=== PATIENT | male | born 1975 | race Two or more races ===

== ENCOUNTER 2024-11-01 21:01 | Inpatient (IN) | payer OTHER ==
[~2024-11-01] VITALS: Ht 182.9 cm; Wt 82.4 kg
--- NOTE | 2024-11-01 21:13 | ECG ---
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
--- NOTE | 2024-11-01 21:24 | ED.PDOC ---
HPI Comments 49-year-old male came to emergency room due to palpitations. Patient has history of anxiety, and recently diagnosed with PVCs. States he has been having intermittent episodes of palpitations since yesterday, associated weakness and chest discomfort. Denies any dizziness or shortness a breath. States worsening and persistence of palpitations the past few hours prompted him to go to the ER. Chief Complaint: Palpitations Time Seen by MD: 21:23 Reviewed Notes: Nurses Notes Allergies: Coded Allergies: No Known Drug Allergy (Verified Allergy, Unknown, 11/01/24) Information Source: Patient Mode of Arrival: Ambulatory Severity: Moderate Timing: Hours Duration: Since onset Associated Signs and Symptoms: Palpitations Review of Systems REVIEW OF SYSTEMS: No fever, no chills, or fatigue HEENT: No sore throat, no earache, no congestion, no neck pain. Cardiac: No chest pain. (+) palpitations. Lungs: No shortness of breath, no cough. GI: No nausea, no vomiting, no diarrhea, no constipation, no abdominal pain : No dysuria, frequency, or urgency. No hematuria. Musculoskeletal: No joint pain , no joint swelling, no extremity edema. Skin: No rash, no itching. Neuro: No headache, no dizziness, no weakness Vital Signs Vital Signs Date Time Temp Pulse Resp B/P (MAP) Pulse Ox O2 Delivery O2 Flow Rate FiO2 11/01/24 23:17 98.2 88 18 152/85 (107) 97 98.2 11/01/24 23:17 Room Air Physical Exam General: Awake, alert and oriented. No acute distress. Skin: Skin in warm, dry and intact. Appropriate color for ethnicity. Nailbeds pink with no cyanosis. HEENT: The head is normocephalic and atraumatic. Conjunctivae are clear without exudates or hemorrhage. Sclera is non-icteric. EOM are intact. No signs of nystagmus. Eyelids are normal in appearance without swelling or lesions. Oral mucosa is pink and moist Neck: The neck is supple with normal range of motion. No JVD. Cardiac: Heart rate and rhythm are normal. No murmurs, gallops, or rubs are auscultated. Respiratory: No signs of respiratory distress. Lung sounds are clear in all lobes bilaterally without rales, ronchi, or wheezes. Abdominal: Abdomen is soft, non-tender without distention. Bowel sounds are present and normoactive in all four quadrants. Extremities: Upper and lower extremities are atraumatic in appearance without deformity or edema. Neurological: The patient is awake, alert and oriented to person, place, and time with normal speech. Speech is clear. There is no facial asymmetry. Psychiatric: Appropriate mood and affect. Good judgement and insight. No visual or auditory hallucinations. Past Medical History PAST MEDICAL HISTORY: Anxiety Past Medical History (Other): PVCs Surgical History: Denies all surgeries Family History Family History: Reviewed,noncontributory to illness Social History Smoker: Non-Smoker Alcohol: Denies ETOH Use Drugs: Denies Drug Use Lives In: Home EKG EKG : Pulse Rate (adult): 92 Cardiac Rhythm: NSR Was a procedure done? Was a procedure done?: No CP Differential Dx Differential Diagnosis: A-fib, Angina, Anxiety / Panic Attack, Hyperventilation, PVC's, Sinus Tachycardia Differential Diagnosis: Angina, Chest Wall Pain, Costochondritis, Esophageal reflux/spasm, Gastritis, Myocardial Infarction X-Ray, Labs, Meds, VS Vital Signs Date Time Temp Pulse Resp B/P (MAP) Pulse Ox O2 Delivery O2 Flow Rate FiO2 11/01/24 23:17 98.2 88 18 152/85 (107) 97 98.2 11/01/24 23:17 88 18 97 Room Air 11/01/24 22:15 94 11/01/24 21:38 98.2 94 18 152/81 (104) 98 11/01/24 21:24 92 11/01/24 21:11 92 Lab Test 11/01/24 21:55 11/01/24 21:13 Range/Units Troponin I High Sensitivity 3 L 3 L </=54 ng/L White Blood Count 6.6 4.4-10.8 10^3/uL Red Blood Count 5.18 4.5-5.90 10^6/uL Hemoglobin 14.5 13.5-17.5 g/dL Hematocrit 41.8 41.0-53.0 % Mean Corpuscular Volume 80.6 80.0-100.0 fL Mean Corpuscular Hemoglobin 28.0 28.0-32.0 pg Mean Corpuscular Hemoglobin Concent 34.7 32.0-36.0 g/dL Red Cell Distribution Width 14.1 11.8-14.3 % Platelet Count 209 140-450 10^3/uL Mean Platelet Volume 7.9 6.9-10.8 fL Neutrophils (%) (Auto) 68.6 37.0-80.0 % Lymphocytes (%) (Auto) 20.9 10.0-50.0 % Monocytes (%) (Auto) 9.0 0.0-12.0 % Eosinophils (%) (Auto) 0.9 0.0-7.0 % Basophils (%) (Auto) 0.6 0.0-2.0 % Neutrophils # (Auto) 4.6 1.6-8.6 10 ^3/uL Lymphocytes # (Auto) 1.4 0.4-5.4 10 ^3/uL Monocytes # (Auto) 0.6 0-1.3 10 ^3/uL Eosinophils # (Auto) 0.1 0-0.8 10 ^3/uL Basophils # (Auto) 0 0-0.2 10 ^3/uL Nucleated Red Blood Cells 0.0 % Sodium Level 141 136-145 mmol/L Potassium Level 4.1 3.5-5.1 mmol/L Chloride Level 108 H 98-107 mmol/L Carbon Dioxide Level 29 20-31 mmol/L Anion Gap 4 L 5-15 Blood Urea Nitrogen 11 9-23 mg/dL Creatinine 1.19 0.700-1.30 mg/dL Glomerular Filtration Rate Calc 74 >90 mL/min BUN/Creatinine Ratio 9.2 L 10.0-20.0 Serum Glucose 109 H 74-106 mg/dL Calcium Level 10.1 8.7-10.4 mg/dL Magnesium Level 2.3 1.6-2.6 mg/dL Total Bilirubin 0.6 0.2-1.0 mg/dL Aspartate Amino Transferase (AST) 29 13-40 U/L Alanine Aminotransferase (ALT) 36 7-40 U/L Alkaline Phosphatase 96 46-116 U/L Total Protein 7.5 5.7-8.2 g/dL Albumin 4.5 3.2-4.8 g/dL Thyroid Stimulating Hormone (TSH) 1.12 0.55-4.78 uIU/mL CHEST RADIOGRAPH Indication: Chest pain, palpitations Technique: Single frontal view of the chest was obtained Comparison: None FINDINGS: Lines and Tubes: None Lungs: No focal consolidation. Pleura: No effusion. No pneumothorax. Cardiomediastinal contours: Unremarkable Bones: No acute osseous abnormality. IMPRESSION: No acute cardiopulmonary disease. Time of 1ST Reevaluation: 21:18 Reevaluation 1ST: Unchanged Patient Education/Counseling: Diagnosis, Treatment Family Education/Counseling: No Family Present Departure 1 Departure Time of Disposition: 22:40 Impression: Primary Impression: Chest pain Additional Impressions: Palpitations Symptomatic PVCs Disposition: ADMITTED INPATIENT Admit to: Tele Condition: Stable Comments 49-year-old male who presents to the emergency department with increased frequency of palpitations and symptomatic PVCs. Patient admitted for further treatment, evaluation and monitoring. Extensive evaluation was performed in attempt to identify or rule out: (See differential diagnosis section) The following tests were ordered, and results were reviewed by me: (See diagnostic results section) The following test were independently interpreted by me: N/A I reviewed and agreed with the following test results read by other providers: N/A I reviewed the following notes from the pt's past medical encounters: (None available at this time) Additional information was gathered from interviewing the following independent historians: N/A Discussion of management or test interpretation with external physician/other qualified health career resource specialist: N/A Addressed an acute or chronic illness that poses a threat to life or bodily function: Chest pain, PVC next. Decision regarding hospitalization or escalation of hospital level of care: Risk and benefits of admission for further treatment of patient's condition was considered. Due to patient's current clinical condition, high risk of decline and poor outcome if discharged and need for further inpatient management and monitoring, patient will be admitted to the hospital. Critical Care Note Critical Care Time?: No Stability Stability form required: No Heart Score Heart Score: Heart Score Response (Comments) Value History Slightly Suspicious 0 EKG Normal 0 Age 45-64 1 Risk Factors 1 or 2 risk factors 1 Troponin Normal limit 0 Total 2 I personally scribed for EVELIN YAÑEZ MD ([email or web address]) on 11/01/24 at 21:24. Electronically submitted by Trent Fischer ([facility] I personally scribed for EVELIN YAÑEZ MD ([email or web address]) on 11/01/24 at 21:50. Electronically submitted by Trent Fischer ([email or web address]). EVELIN YAÑEZ MD Nov 01, 2024 21:24
[2024-11-01 21:42] LABS: Basophils # (auto) 0 10 ^3/uL (0-0.2); Basophils % (auto) 0.6 % (0.0-2.0); Eosinophils # (auto) 0.1 10 ^3/uL (0-0.8); Eosinophils % (auto) 0.9 % (0.0-7.0); Hematocrit 41.8 % (41.0-53.0); Hemoglobin 14.5 g/dL (13.5-17.5); Lymphocytes # (auto) 1.4 10 ^3/uL (0.4-5.4); Lymphocytes % (auto) 20.9 % (10.0-50.0); Mean Corpuscular Hgb Conc. 34.7 g/dL (32.0-36.0); Mean Corpuscular Volume 80.6 fL (80.0-100.0); Monocytes # (auto) 0.6 10 ^3/uL (0-1.3); Neutrophils # (auto) 4.6 10 ^3/uL (1.6-8.6); Neutrophils % (auto) 68.6 % (37.0-80.0); Platelet Count (auto) 209 10^3/uL (140-450); Red Blood Cells 5.18 10^6/uL (4.5-5.90); Red Cell Distribution Width 14.1 % (11.8-14.3); White Blood Cell 6.6 10^3/uL (4.4-10.8)
--- NOTE | 2024-11-01 21:44 | DVH ---
CHEST RADIOGRAPH Indication: Chest pain, palpitations Technique: Single frontal view of the chest was obtained Comparison: None FINDINGS: Lines and Tubes: None Lungs: No focal consolidation. Pleura: No effusion. No pneumothorax. Cardiomediastinal contours: Unremarkable Bones: No acute osseous abnormality. IMPRESSION: No acute cardiopulmonary disease.
[2024-11-01 22:27] LABS: Alanine Aminotransferase 36 U/L (7-40); Albumin 4.5 g/dL (3.2-4.8); Alkaline Phosphatase 96 U/L (46-116); Anion Gap 4 (5-15); Aspartate Aminotransferase 29 U/L (13-40); BUN/Creatinine Ratio 9.2 (10.0-20.0); Blood Urea Nitrogen 11 mg/dL (9-23); Calcium 10.1 mg/dL (8.7-10.4); Carbon Dioxide 29 mmol/L (20-31); Magnesium 2.3 mg/dL (1.6-2.6); Potassium 4.1 mmol/L (3.5-5.1); Sodium 141 mmol/L (136-145); Total Protein 7.5 g/dL (5.7-8.2)
[2024-11-01 22:28] LABS: Bilirubin, Total 0.6 mg/dL (0.2-1.0); Chloride 108 mmol/L (98-107); Glucose 109 mg/dL (74-106)
[2024-11-01] MEDS: ASPirin 81 mg TAB PO ONE (22:45)
--- NOTE | 2024-11-02 02:24 | ECG ---
[facility] Test Date: 2024-11-01 Test Time: 22:15:20 Pat Name: MUNA OROPEZA Department: ER Room: 0271T Gender: M [employer] Instructor: YUAN : 1975 Requested By: EVELIN YAÑEZ Order Number: [id number] Reading MD: Hugo Miner Measurements Intervals Alexander Rate: 94 P: 76 ND: 145 QRS: 78 QRSD: 86 T: 30 QT: 343 QTc: 429 Interpretive Statements Sinus rhythm Ventricular premature complex Electronically Signed On 11-03-2024 18:03:12 PST by Hugo Miner Please click the below link to view image of tracing.
[2024-11-02] MEDS ORDERED: ACETAMINOPHEN 325 MG TAB PO PRN (03:30)
[2024-11-02] MEDS ORDERED: DOCUSATE SOD 100 MG CAP PO PRN (03:30)
[2024-11-02] MEDS ORDERED: hydrALAZINE HCL 20 MG/ML VL IV PRN (03:30)
[2024-11-02] MEDS ORDERED: HYDROcodone-ACET 5/325MG TAB PO PRN (03:30)
[2024-11-02] MEDS ORDERED: ONDANSETRON HCL 4 MG/2 ML VIAL IV PRN (03:30)
[2024-11-02] MEDS ORDERED: NITROGLYCERIN 0.4 MG SL TAB SL PRN ×2 (05:45→20:00)
[2024-11-02] MEDS ORDERED: MORPHINE SULFATE INJ 2 MG/ml SYRG IV PRN (05:45)
--- NOTE | 2024-11-02 05:57 | DVHHP2 ---
History of Present Illness Reason for Visit: Palpitations History of Present Illness The patient is a 49 year male with past medical history of PVCs and anxiety who presented to [facility] ED with complaint of palpitations. Patient reports symptoms progressively get worse with episodes of intermittent palpitations for the past 1 day, associated weakness, chest pain, getting worse that prompted this visit. Patient was seen and evaluated in the ED, laboratory data shows WBC 6.6, platelets 209, sodium 141, potassium 4.1, BUN 11, creatinine 1.19, GFR 74, glucose 109, troponin 3, TSH 1.12, blood pressure 152/88, heart rate 88, temperature 98.2 F, O2 saturation 97% on room air. Chest x-ray show no acute cardiopulmonary disease. Please see medication orders section in the computer. On my assessment, patient denies chest pain, no headache, no dizziness, no diaphoresis, no shortness of breaths, no nausea, no vomiting, no fever, no chills. Patient was admitted for further evaluation and medical management. Past Medical History Anxiety, PVCs Past Surgical History Denies all surgeries Family History Reviewed, noncontributory to the management of this case. Past Social History The patient lives at home, denies smoking, alcohol or illicit drugs abuse. Review of Systems Constitutional: Yes: Weakness; No: Fever, Chills, Sweats, Malaise, Other Eyes: No: Pain, Vision change, Conjunctivae inflammation, Eyelid inflammation, Other, Redness ENT: No: Ear pain, Ear discharge, Nose pain, Nose discharge, Nose congestion, Mouth pain, Mouth swelling, Throat pain, Throat swelling, Other Respiratory: No: Cough, Dry, Shortness of breath, SOB with excertion, Wheezing, Hemoptysis, Pleuritic Pain, Sputum, Wheezing, Other Cardiovascular: Palpitations; No: Chest Pain, Orthopnea, Paroxysmal Noc. Dyspnea, Edema, Lt Headedness, Other Gastrointestinal: No: Nausea, Vomiting, Abdominal Pain, Diarrhea, Constipation, Melena, Hematochezia, Other Genitourinary: No Dysuria, No Frequency, No Incontinence, No Hematuria, No Retention, No Other Musculoskeletal: No: other, neck pain, shoulder pain, arm pain, back pain, hand pain, leg pain, foot pain Skin: No: Rash, Lesions, Jaundice, Bruising, Other Neurological: No: Weakness, Numbness, Incoordination, Change in speech, Confusion, Seizures, Other Allergies: Coded Allergies: No Known Drug Allergy (Verified Allergy, Unknown, 11/01/24) Medications Current Medications Medications Dose Ordered Sig/Hilaria Route Start Time Stop Time Status Last Admin Dose Admin Aspirin 81 mg DAILY PO 11/02/24 10:00 Hydralazine HCl 10 mg Q6HP PRN IV 11/02/24 03:30 Sodium Chloride 10 ml Q8HR IV 11/02/24 06:00 Acetaminophen/ Hydrocodone Bitart 1 tab Q4HP PRN PO 11/02/24 03:30 Ondansetron HCl 4 mg Q4HP PRN IV 11/02/24 03:30 Docusate Sodium 100 mg BIDPRN PRN PO 11/02/24 03:30 Acetaminophen 650 mg Q6HP PRN PO 11/02/24 03:30 Exam Vital Signs Vital Signs Date Time Temp Pulse Resp B/P (MAP) Pulse Ox O2 Delivery O2 Flow Rate FiO2 11/02/24 05:20 97.5 88 16 142/88 (106) 98 97.5 11/01/24 23:17 Room Air General Appearance: Alert, Oriented X3, Cooperative, No acute distress HEENT: Atraumatic, PERRLA, EOMI, Mucous membr. moist/pink Respiratory: Clear to auscultation, Normal air movement Cardiovascular: Regular rate, Normal S1, Normal S2, No murmurs Abdominal: Normal bowel sounds, Soft, No tenderness, No hepatospenomegaly, No masses Extremities: No clubbing, No cyanosis, No edema, Normal pulses, No tenderness/swelling Skin: No rashes, No breakdown, No significant lesion Neuro: Normal speech, Normal tone, Sensation intact, Cranial nerves 3-12 NL, Reflexes 2+, Other (Generalized weakness) Psych/Mental Status: Mental status NL, Mood NL Labs/Xrays Labs Test 11/01/24 21:55 11/01/24 21:13 Range/Units Troponin I High Sensitivity 3 L </=54 ng/L White Blood Count 6.6 4.4-10.8 10^3/uL Red Blood Count 5.18 4.5-5.90 10^6/uL Hemoglobin 14.5 13.5-17.5 g/dL Hematocrit 41.8 41.0-53.0 % Mean Corpuscular Volume 80.6 80.0-100.0 fL Mean Corpuscular Hemoglobin 28.0 28.0-32.0 pg Mean Corpuscular Hemoglobin Concent 34.7 32.0-36.0 g/dL Red Cell Distribution Width 14.1 11.8-14.3 % Platelet Count 209 140-450 10^3/uL Mean Platelet Volume 7.9 6.9-10.8 fL Neutrophils (%) (Auto) 68.6 37.0-80.0 % Lymphocytes (%) (Auto) 20.9 10.0-50.0 % Monocytes (%) (Auto) 9.0 0.0-12.0 % Eosinophils (%) (Auto) 0.9 0.0-7.0 % Basophils (%) (Auto) 0.6 0.0-2.0 % Neutrophils # (Auto) 4.6 1.6-8.6 10 ^3/uL Lymphocytes # (Auto) 1.4 0.4-5.4 10 ^3/uL Monocytes # (Auto) 0.6 0-1.3 10 ^3/uL Eosinophils # (Auto) 0.1 0-0.8 10 ^3/uL Basophils # (Auto) 0 0-0.2 10 ^3/uL Nucleated Red Blood Cells 0.0 % Sodium Level 141 136-145 mmol/L Potassium Level 4.1 3.5-5.1 mmol/L Chloride Level 108 H 98-107 mmol/L Carbon Dioxide Level 29 20-31 mmol/L Anion Gap 4 L 5-15 Blood Urea Nitrogen 11 9-23 mg/dL Creatinine 1.19 0.700-1.30 mg/dL Glomerular Filtration Rate Calc 74 >90 mL/min BUN/Creatinine Ratio 9.2 L 10.0-20.0 Serum Glucose 109 H 74-106 mg/dL Calcium Level 10.1 8.7-10.4 mg/dL Magnesium Level 2.3 1.6-2.6 mg/dL Total Bilirubin 0.6 0.2-1.0 mg/dL Aspartate Amino Transferase (AST) 29 13-40 U/L Alanine Aminotransferase (ALT) 36 7-40 U/L Alkaline Phosphatase 96 46-116 U/L Total Protein 7.5 5.7-8.2 g/dL Albumin 4.5 3.2-4.8 g/dL Thyroid Stimulating Hormone (TSH) 1.12 0.55-4.78 uIU/mL PATIENT: MUNA OROPEZAACCT: [id number] UNIT: [id number] : 1975 LOC: ER ROOM / BED: / AGE / SEX: 49 / M ADM STATUS: REG ER SERVICE 17 ORDERING PHYSICIAN: EVELIN YAÑEZ MD PROCEDURE(s): CXR1 - CHEST XRAY 1 VIEW REASON: Chest pain, palpitations ORDER NUMBER(s): [id number], ACCESSION NUMBER(s): [id number] CHEST RADIOGRAPH Indication: Chest pain, palpitations Technique: Single frontal view of the chest was obtained Comparison: None FINDINGS: Lines and Tubes: None Lungs: No focal consolidation. Pleura: No effusion. No pneumothorax. Cardiomediastinal contours: Unremarkable Bones: No acute osseous abnormality. IMPRESSION: No acute cardiopulmonary disease. Assessment/Plan Assessment/Plan Palpitations Chest pain Symptomatic PVCs Plan 1. Admit to telemetry unit 2. Breathing treatment 3. Pain control management 4. Management of fluids and electrolytes 5. Consultation for cardiology 6. Diagnostic tests chest x-ray 7. DVT prophylaxis-on aspirin 8. Repeat labs CBC, CMP in a.m. 9. Continue with current medical management 10. Treatment plan discussed with patient and RN. Patient verbalized understanding. Plan discussed with: Patient, Other (RN) My Orders Orders - KEDAR GUERRIER DNP Procedure Category Date Status Time Complete Blood Count LAB 11/02/24 Logged 04:00 Comprehensive LAB 11/02/24 Logged Metabolic Panel 04:00 Aspirin Tablet PHA 11/02/24 In Process 10:00 Hydralazine Injection PHA 11/02/24 In Process (Apresoline Inject 03:30 Allergies TORIBIO 11/02/24 In Process 03:22 Code Status CODE 11/02/24 Transmitted 03:22 Sodium Chloride Lock PHA 11/02/24 In Process (Saline Lock Ns) 06:00 Oxygen Per Hour RT 11/02/24 Transmitted 03:22 Hydrocodone-Acet PHA 11/02/24 In Process 5/325mg Tab (Yulan 03:30 Ondansetron Hcl PHA 11/02/24 In Process (Zofran) 03:30 Docusate Sodium PHA 11/02/24 In Process Capsule (Colace 03:30 Complete Blood Count LAB 11/03/24 Verified 04:00 Comprehensive LAB 11/03/24 Verified Metabolic Panel 04:00 Cardiac DIET 11/02/24 Transmitted Diet-2gna,Lofat,Lochol Breakfast Condition: Serious TORIBIO 11/02/24 In Process 03:22 Acetaminophen Tablet PHA 11/02/24 In Process (Tylenol Tablet) 03:30 Bedrest With Bathroom TORIBIO 11/02/24 In Process Privileg 03:22 Sequential TORIBIO 11/02/24 In Process Compression Device Problem List: (1) Palpitations (2) Chest pain (3) Symptomatic PVCs Date of Service: Nov 02, 2024 Billing Provider: KEDAR GUERRIER DNP Common Visit Codes: [id number] INP/OBS CARE (HIGH) KEDAR GUERRIER DNP Nov 02, 2024 05:57
[2024-11-02] MEDS: SODIUM CHLOR 0.9% PF (SALINE LOCK) 10ML VIAL/SYR IV SCH (06:00)
[2024-11-02 07:58] VITALS: PULSE 95; RESP 20; O2SAT 95
[2024-11-02 08:29] LABS: Basophils # (auto) 0 10 ^3/uL (0-0.2); Basophils % (auto) 0.6 % (0.0-2.0); Eosinophils # (auto) 0 10 ^3/uL (0-0.8); Eosinophils % (auto) 0.7 % (0.0-7.0); Hematocrit 45.1 % (41.0-53.0); Hemoglobin 15.5 g/dL (13.5-17.5); Lymphocytes # (auto) 1.1 10 ^3/uL (0.4-5.4); Lymphocytes % (auto) 23.7 % (10.0-50.0); Mean Corpuscular Hemoglobin 27.3 pg (28.0-32.0); Mean Corpuscular Hgb Conc. 34.3 g/dL (32.0-36.0); Mean Corpuscular Volume 79.7 fL (80.0-100.0); Monocytes # (auto) 0.4 10 ^3/uL (0-1.3); Monocytes % (auto) 9.4 % (0.0-12.0); Neutrophils # (auto) 2.9 10 ^3/uL (1.6-8.6); Neutrophils % (auto) 65.6 % (37.0-80.0); Nucleated Red Blood Cells % 0.5 %; Platelet Count (auto) 212 10^3/uL (140-450); Red Blood Cells 5.66 10^6/uL (4.5-5.90); Red Cell Distribution Width 14.1 % (11.8-14.3); White Blood Cell 4.5 10^3/uL (4.4-10.8)
[2024-11-02 08:49] LABS: Alanine Aminotransferase 39 U/L (7-40); Alkaline Phosphatase 102 U/L (46-116); Anion Gap 6 (5-15); Aspartate Aminotransferase 28 U/L (13-40); BUN/Creatinine Ratio 9.2 (10.0-20.0); Blood Urea Nitrogen 10 mg/dL (9-23); Calcium 10.1 mg/dL (8.7-10.4); Carbon Dioxide 28 mmol/L (20-31); Chloride 106 mmol/L (98-107); Potassium 4.1 mmol/L (3.5-5.1); Sodium 140 mmol/L (136-145); Triglycerides 68 mg/dL (< 150)
[2024-11-02 08:50] LABS: Albumin 4.9 g/dL (3.2-4.8); Bilirubin, Total 0.7 mg/dL (0.2-1.0); Cholesterol 221 mg/dL (< 200); Glucose 115 mg/dL (74-106); HDL Cholesterol 57 mg/dL (40-59); LDL Cholesterol 159 mg/dL (< 100)
[2024-11-02] MEDS: ASPirin 81 mg TAB PO SCH (10:00)
[2024-11-02 14:39] VITALS: BP 141/84; PULSE 73; RESP 13; TEMP 98.4; O2SAT 98
--- NOTE | 2024-11-02 15:04 | DVHPN2 ---
Assessment/Plan Assessment/Plan progress note 49 yo M with PMH of PVC admitted for palpitations, throwing multiple sympomatic PVC physical exam aox4 clear breath sounds s1 s2 rrr no mummur nor JVD no LE edema abdomen soft nontender ekg imaging telemetry reviewed assessment and plan symptomatic PVC anxiety start metop keep in telemetry, if no VT can be dc home tomorrow full code diet reg dvt ppx ambul Plan discussed with: Patient My Orders Orders - SARATH SHOEMAKER MD Procedure Category Date Status Time Cardiac DIET 11/02/24 Transmitted Diet-2gna,Lofat,Lochol Lunch Electrocardigram EKG 11/02/24 Logged 13:09 Date of Service: Nov 02, 2024 Billing Provider: SARATH SHOEMAKER MD Common Visit Codes: [id number] INP/OBS CARE(HIGH) SARATH SHOEMAKER MD Nov 02, 2024 15:04
[2024-11-02] MEDS: METOPROLOL SUCCINATE XL 50 MG TAB PO ONE (15:37)
[2024-11-02 20:00] VITALS: PULSE 66; PULSE 80; RESP 18; O2SAT 98
[2024-11-02] MEDS ORDERED: MORPHINE SULFATE 4 MG/ML SYR/VIAL IV PRN (20:00)
[2024-11-02 21:00] VITALS: BP 139/87; PULSE 80; RESP 18; TEMP 98.1; O2SAT 98
[2024-11-03] VITALS (9 sets, daily range): BP systolic 103–123; BP diastolic 67–86; PULSE 60–80; RESP 16–18; TEMP 97.8–98.6; O2SAT 94–100
[2024-11-03] MEDS: METOPROLOL SUCCINATE XL 50 MG TAB PO SCH (09:10)
[2024-11-03 09:22] LABS: Basophils # (auto) 0.1 10 ^3/uL (0-0.2); Basophils % (auto) 1.5 % (0.0-2.0); Eosinophils # (auto) 0.1 10 ^3/uL (0-0.8); Eosinophils % (auto) 1.5 % (0.0-7.0); Hematocrit 42.5 % (41.0-53.0); Lymphocytes # (auto) 1.1 10 ^3/uL (0.4-5.4); Mean Corpuscular Hemoglobin 28.2 pg (28.0-32.0); Mean Corpuscular Hgb Conc. 35.3 g/dL (32.0-36.0); Mean Corpuscular Volume 79.9 fL (80.0-100.0); Monocytes # (auto) 0.4 10 ^3/uL (0-1.3); Neutrophils # (auto) 1.9 10 ^3/uL (1.6-8.6); Nucleated Red Blood Cells % 0.3 %; Platelet Count (auto) 195 10^3/uL (140-450); Red Blood Cells 5.32 10^6/uL (4.5-5.90); Red Cell Distribution Width 13.8 % (11.8-14.3); White Blood Cell 3.5 10^3/uL (4.4-10.8)
[2024-11-03 09:48] LABS: Chloride 106 mmol/L (98-107); Potassium 4.4 mmol/L (3.5-5.1); Sodium 140 mmol/L (136-145)
[2024-11-03 09:49] LABS: Anion Gap 6 (5-15); Carbon Dioxide 28 mmol/L (20-31)
[2024-11-03 09:54] LABS: Blood Urea Nitrogen 12 mg/dL (9-23)
[2024-11-03 10:03] LABS: Glucose 110 mg/dL (74-106)
--- NOTE | 2024-11-03 12:29 | DVHPN2 ---
Reviewed: Care Plan, H&P, Labs, Medications, Previous Orders, Radiology Changes from previous H/P or p: No Changes Eyes: No Pain, No Vision change, No Conjunctivae inflammation, No Eyelid inflammation, No Other, No Redness ENT: No Ear pain, No Ear discharge, No Nose pain, No Nose discharge, No Nose congestion, No Mouth pain, No Mouth swelling, No Throat pain, No Throat swelling, No Other Cardiovascular: No Chest Pain; Palpitations; No Orthopnea, No Paroxysmal Noc. Dyspnea, No Edema, No Lt Headedness, No Other Respiratory: No Cough, No Dry, No Shortness of breath, No SOB with excertion, No Wheezing, No Hemoptysis, No Pleuritic Pain, No Sputum, No Other Gastrointestinal: No Nausea, No Vomiting, No Abdominal Pain, No Diarrhea, No Constipation, No Melena, No Hematochezia, No Other Genitourinary: No Dysuria, No Frequency, No Incontinence, No Hematuria, No Retention, No Other Musculoskeletal: No other, No neck pain, No shoulder pain, No arm pain, No back pain, No hand pain, No leg pain, No foot pain Skin: No Rash, No Lesions, No Jaundice, No Bruising, No Other Objective Vitals Vital Signs Date Time Temp Pulse Resp B/P (MAP) Pulse Ox O2 Delivery O2 Flow Rate FiO2 11/03/24 09:10 65 120/81 11/03/24 08:51 98.3 16 94 98.3 11/03/24 08:05 Room Air* 0 21 Intake/Output Intake and Output 11/03/24 07:00 Intake Total 240 ml Balance 240 ml Intake Oral 240 ml # Bowel Movements 1 Medications Current Medications Medications Dose Ordered Sig/Hilaria Route Start Time Stop Time Status Last Admin Dose Admin Sodium Chloride 10 ml Q8HR IV 11/02/24 06:00 11/02/24 22:06 10 ML Metoprolol Succinate 25 mg DAILY PO 11/03/24 10:00 11/03/24 09:10 25 MG Morphine Sulfate 2 mg Q30MP PRN IV 11/02/24 20:00 Nitroglycerin 0.4 mg Q5MINP PRN SL 11/02/24 20:00 Laboratory Results Laboratory Tests 11/03/24 09:07 Chemistry Test 11/03/24 09:07 Calcium Level 10.0 mg/dL (8.7-10.4) Labs and/or images reviewed: Labs reviewed by me, Image(s) reviewed by me Assessment/Plan Assessment/Plan symptomatic PVC: Metoprolol succinate check urine drug screen, TSH normal cardiology consult for Dr. Luciano anxiety: Continue home medication BuSpirone Hypercholesterolemia: Lipitor History of palpitations for the last four years patient has had extensive workup in the with the negative findings per patient Patient denies smoking alcohol or illicit drugs use Echocardiogram report.pending Plan discussed with: Patient My Orders Orders - ALONZO BURGESS MD Procedure Category Date Status Time * Cardiology Consult CONS 11/03/24 Transmitted 12:15 Date of Service: Nov 03, 2024 Billing Provider: ALONZO BURGESS MD Common Visit Codes: [id number] INP/OBS CARE(HIGH) ALONZO BURGESS MD Nov 03, 2024 12:29
--- NOTE | 2024-11-03 12:30 | DVHSR ---
APPROVED REPORT EXAM: Two-dimensional and M-mode echocardiogram with Doppler and color Doppler. Blood Pressure: 141/92 mmHg INDICATION Eval cardiac function RISK FACTORS Height: 71, Weight: 184 DIMENSIONS LVDd4.5 (3.8-5.7cm)LA (2D)3.7 (1.9-4.0cm)Aortic Root3.6 (2.0-3.7cm) LVDs3.1 (2.5-4.0cm)LA (MM) (1.9-4.0cm)Aortic Cusp Exc2.0 (1.5-2.0cm) EF (%) 60.0 (55-70%)Rt. Atrium3.7 (1.9-4.0cm)Asc. Aorta cm IVSd0.9 (0.7-1.1cm)RV (D) (1.8-2.4cm) PWd1.0 (0.7-1.1cm) Mitral Valve MitralMitral Stenosis E wave0.58m/sMV Mean GR.mmHg A wave0.48m/sMV Peak GR.mmHg E/A ratio1.22D MVAcm2 DECEL [id number] 1/2 [id number] IVRTmsDop MVA3.08cm2 Aortic Valve Aortic ValveAortic Stenosis V10.78m/Cristina Mean GR.2mmHg V20.90m/Cristina Peak GR.3mmHg LVOT Diameter2.5 (1.8-2.4cm)Doppler AVA4.25cm2 Pulmonic Valve V20.87m/s Conclusion lvef 60% by visual estimate normal rv function left atrium enlarged no severe valve abnormalities noted normal pericardium
[2024-11-03] MEDS: busPIRone HCL 10 MG TAB PO ONE (12:44)
--- NOTE | 2024-11-03 15:09 | DVHINCON2 ---
Date of service: Nov 03, 2024 History of Present Illness 49 yo M with hx of PVCs admitted for palpitations. 1 pvc was noted on his ecg. pt lives in [place] and has a cards there and he recently had an normal holter. he had normal treadmill Past Medical History reviewed Family History: Patient reports no known family medical history. Allergies: Coded Allergies: No Known Drug Allergy (Verified Allergy, Unknown, 11/01/24) Current Medications Current Medications Medications (Trade) Dose Ordered Sig/Hilaria Route PRN Reason Start Time Stop Time Status Last Admin Metoprolol Succinate (Toprol Xl) 25 mg DAILY PO 11/03/24 10:00 11/03/24 09:10 Morphine Sulfate 2 mg Q30MP PRN IV FOR CHEST PAIN 11/02/24 20:00 Nitroglycerin (Ntrostat Sublingual) 0.4 mg Q5MINP PRN SL FOR CHEST PAIN 11/02/24 20:00 Atorvastatin Calcium (Lipitor) 40 mg HS PO 11/03/24 22:00 Buspirone HCl (Buspar Tablet) 10 mg Q12HR PO 11/03/24 22:00 Review of Systems 10 pt ros otherwise negative Vital Signs Vital Signs Date Time Temp Pulse Resp B/P (MAP) Pulse Ox O2 Delivery O2 Flow Rate FiO2 11/03/24 12:48 98.0 66 17 123/77 (92) 97 98.0 11/03/24 08:05 Room Air* 0 21 Physical Exam nad s1 s2 rrr ctab softn nt/nd no edema Labs/Diagnostic Data Labs Test 11/03/24 09:07 11/02/24 08:11 11/01/24 21:55 11/01/24 21:13 Range/Units White Blood Count 3.5 L 4.4-10.8 10^3/uL Red Blood Count 5.32 4.5-5.90 10^6/uL Hemoglobin 15.0 13.5-17.5 g/dL Hematocrit 42.5 41.0-53.0 % Mean Corpuscular Volume 79.9 L 80.0-100.0 fL Mean Corpuscular Hemoglobin 28.2 28.0-32.0 pg Mean Corpuscular Hemoglobin Concent 35.3 32.0-36.0 g/dL Red Cell Distribution Width 13.8 11.8-14.3 % Platelet Count 195 140-450 10^3/uL Mean Platelet Volume 7.9 6.9-10.8 fL Neutrophils (%) (Auto) 55.0 37.0-80.0 % Lymphocytes (%) (Auto) 30.0 10.0-50.0 % Monocytes (%) (Auto) 12.0 0.0-12.0 % Eosinophils (%) (Auto) 1.5 0.0-7.0 % Basophils (%) (Auto) 1.5 0.0-2.0 % Neutrophils # (Auto) 1.9 1.6-8.6 10 ^3/uL Lymphocytes # (Auto) 1.1 0.4-5.4 10 ^3/uL Monocytes # (Auto) 0.4 0-1.3 10 ^3/uL Eosinophils # (Auto) 0.1 0-0.8 10 ^3/uL Basophils # (Auto) 0.1 0-0.2 10 ^3/uL Nucleated Red Blood Cells 0.3 % Sodium Level 140 136-145 mmol/L Potassium Level 4.4 3.5-5.1 mmol/L Chloride Level 106 98-107 mmol/L Carbon Dioxide Level 28 20-31 mmol/L Anion Gap 6 5-15 Blood Urea Nitrogen 12 9-23 mg/dL Creatinine 1.20 0.700-1.30 mg/dL Glomerular Filtration Rate Calc 74 >90 mL/min BUN/Creatinine Ratio 10.0 10.0-20.0 Serum Glucose 110 H 74-106 mg/dL Calcium Level 10.0 8.7-10.4 mg/dL Hemoglobin A1c 5.1 <5.7 % A1C Total Bilirubin 0.7 0.2-1.0 mg/dL Aspartate Amino Transferase (AST) 28 13-40 U/L Alanine Aminotransferase (ALT) 39 7-40 U/L Alkaline Phosphatase 102 46-116 U/L Total Protein 8.0 5.7-8.2 g/dL Albumin 4.9 H 3.2-4.8 g/dL Triglycerides Level 68 < 150 mg/dL Cholesterol Level 221 H < 200 mg/dL LDL Cholesterol 159 H < 100 mg/dL HDL Cholesterol 57 40-59 mg/dL Troponin I High Sensitivity 3 L </=54 ng/L Magnesium Level 2.3 1.6-2.6 mg/dL Thyroid Stimulating Hormone (TSH) 1.12 0.55-4.78 uIU/mL Assessment hx of PVcs anxiety Plan/Recommendation his tele is essentially completely normal with rare PVCs can start low dose BB metop is better than propranolol reassured pt-- he has very low burden if anything, hes getting ILR in future his echo shows structural normal heart had normal ischemic workup with his cards no further cv workup indicated signing off Plan discussed with: Patient ИРИНА WOODS MD Nov 03, 2024 15:09
[2024-11-03] MEDS: ATORVASTATIN 20 MG TAB PO SCH (21:31)
[2024-11-03] MEDS: busPIRone HCL 10 MG TAB PO SCH (21:32)
[2024-11-04 05:00] VITALS: BP 118/72; PULSE 68; RESP 18; TEMP 98.6; O2SAT 95
[2024-11-04 08:00] VITALS: PULSE 67
[2024-11-04 09:00] VITALS: BP 128/74; PULSE 86; RESP 17; TEMP 98; O2SAT 98
--- NOTE | 2024-11-04 11:59 | DVHPN2 ---
Reviewed: Care Plan, H&P, Labs, Medications, Previous Orders, Radiology Changes from previous H/P or p: No Changes Eyes: No Pain, No Vision change, No Conjunctivae inflammation, No Eyelid inflammation, No Other, No Redness ENT: No Ear pain, No Ear discharge, No Nose pain, No Nose discharge, No Nose congestion, No Mouth pain, No Mouth swelling, No Throat pain, No Throat swelling, No Other Cardiovascular: No Chest Pain; Palpitations; No Orthopnea, No Paroxysmal Noc. Dyspnea, No Edema, No Lt Headedness, No Other Respiratory: No Cough, No Dry, No Shortness of breath, No SOB with excertion, No Wheezing, No Hemoptysis, No Pleuritic Pain, No Sputum, No Other Gastrointestinal: No Nausea, No Vomiting, No Abdominal Pain, No Diarrhea, No Constipation, No Melena, No Hematochezia, No Other Genitourinary: No Dysuria, No Frequency, No Incontinence, No Hematuria, No Retention, No Other Musculoskeletal: No other, No neck pain, No shoulder pain, No arm pain, No back pain, No hand pain, No leg pain, No foot pain Skin: No Rash, No Lesions, No Jaundice, No Bruising, No Other Objective Vitals Vital Signs Date Time Temp Pulse Resp B/P (MAP) Pulse Ox O2 Delivery O2 Flow Rate FiO2 11/04/24 09:15 86 128/74 11/04/24 09:00 98.0 17 98 98.0 11/04/24 08:05 Room Air* 0 21 Intake/Output Intake and Output 11/04/24 07:00 Intake Total 1500 ml Balance 1500 ml Intake Oral 1500 ml # Voids 5 # Bowel Movements 1 Medications Current Medications Medications Dose Ordered Sig/Hilaria Route Start Time Stop Time Status Last Admin Dose Admin Sodium Chloride 10 ml Q8HR IV 11/02/24 06:00 11/04/24 06:48 10 ML Metoprolol Succinate 25 mg DAILY PO 11/03/24 10:00 11/04/24 09:15 25 MG Morphine Sulfate 2 mg Q30MP PRN IV 11/02/24 20:00 Nitroglycerin 0.4 mg Q5MINP PRN SL 11/02/24 20:00 Atorvastatin Calcium 40 mg HS PO 11/03/24 22:00 Buspirone HCl 10 mg Q12HR PO 11/03/24 22:00 11/04/24 11:39 10 MG Laboratory Results Laboratory Tests 11/03/24 09:07 Labs and/or images reviewed: Labs reviewed by me, Image(s) reviewed by me Assessment/Plan Assessment/Plan symptomatic PVC: Metoprolol succinate check urine drug screen, TSH normal cardiology consult for Dr. Mustapha estevez, echo 60 percent ejection fraction, no further cardiac workup anxiety: Continue home medication BuSpirone Hypercholesterolemia: Lipitor History of palpitations for the last four years patient has had extensive workup in the with the negative findings per patient Patient denies smoking alcohol or illicit drugs use Echocardiogram report.pending Plan discussed with: Patient My Orders Orders - ALONZO BURGESS MD Procedure Category Date Status Time * Cardiology Consult CONS 11/03/24 Transmitted 12:15 Atorvastatin (Lipitor) PHA 11/03/24 In Process 22:00 Buspirone Hcl Tablet PHA 11/03/24 In Process (Buspar Tablet) 22:00 Date of Service: Nov 04, 2024 Billing Provider: ALONZO BURGESS MD Common Visit Codes: [id number] INP/OBS CARE(HIGH) ALONZO BURGESS MD Nov 04, 2024 11:59
[2024-11-04] MEDS ORDERED: METO25TA93 PO (12:08)
--- NOTE | 2024-11-04 12:13 | DVHDS2 ---
Discharge Summary Date of Admission Nov 02, 2024 at 05:35 Date of Discharge: Nov 04, 2024 Admitting Diagnosis PVCs Wounds: None Labs/Diagnostic Data: Laboratory Results Test 11/03/24 09:07 11/02/24 08:11 11/01/24 21:55 11/01/24 21:13 White Blood Count 3.5 10^3/uL (4.4-10.8) Red Blood Count 5.32 10^6/uL (4.5-5.90) Hemoglobin 15.0 g/dL (13.5-17.5) Hematocrit 42.5 % (41.0-53.0) Mean Corpuscular Volume 79.9 fL (80.0-100.0) Mean Corpuscular Hemoglobin 28.2 pg (28.0-32.0) Mean Corpuscular Hemoglobin Concent 35.3 g/dL (32.0-36.0) Red Cell Distribution Width 13.8 % (11.8-14.3) Platelet Count 195 10^3/uL (140-450) Mean Platelet Volume 7.9 fL (6.9-10.8) Neutrophils (%) (Auto) 55.0 % (37.0-80.0) Lymphocytes (%) (Auto) 30.0 % (10.0-50.0) Monocytes (%) (Auto) 12.0 % (0.0-12.0) Eosinophils (%) (Auto) 1.5 % (0.0-7.0) Basophils (%) (Auto) 1.5 % (0.0-2.0) Neutrophils # (Auto) 1.9 10 ^3/uL (1.6-8.6) Lymphocytes # (Auto) 1.1 10 ^3/uL (0.4-5.4) Monocytes # (Auto) 0.4 10 ^3/uL (0-1.3) Eosinophils # (Auto) 0.1 10 ^3/uL (0-0.8) Basophils # (Auto) 0.1 10 ^3/uL (0-0.2) Nucleated Red Blood Cells 0.3 % Sodium Level 140 mmol/L (136-145) Potassium Level 4.4 mmol/L (3.5-5.1) Chloride Level 106 mmol/L (98-107) Carbon Dioxide Level 28 mmol/L (20-31) Anion Gap 6 (5-15) Blood Urea Nitrogen 12 mg/dL (9-23) Creatinine 1.20 mg/dL (0.700-1.30) Glomerular Filtration Rate Calc 74 mL/min (>90) BUN/Creatinine Ratio 10.0 (10.0-20.0) Serum Glucose 110 mg/dL (74-106) Calcium Level 10.0 mg/dL (8.7-10.4) Hemoglobin A1c 5.1 % A1C (<5.7) Total Bilirubin 0.7 mg/dL (0.2-1.0) Aspartate Amino Transferase (AST) 28 U/L (13-40) Alanine Aminotransferase (ALT) 39 U/L (7-40) Alkaline Phosphatase 102 U/L (46-116) Total Protein 8.0 g/dL (5.7-8.2) Albumin 4.9 g/dL (3.2-4.8) Triglycerides Level 68 mg/dL (< 150) Cholesterol Level 221 mg/dL (< 200) LDL Cholesterol 159 mg/dL (< 100) HDL Cholesterol 57 mg/dL (40-59) Troponin I High Sensitivity 3 ng/L (</=54) Magnesium Level 2.3 mg/dL (1.6-2.6) Thyroid Stimulating Hormone (TSH) 1.12 uIU/mL (0.55-4.78) Other Laboratory Tests 11/03/24 09:07 Brief Hx & Hospital Course: 49-year-old male who lives in [place] working 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 He was this history for the last four years and extensive workup as was negative patient takes buspirone for anxiety seated EKG showed occasional PVCs echocardiogram 60 percent ejection fraction patient was patient on metoprolol succinate with which the PVCs were controlled seen by Cardiology Dr. Luciano advised to continue buspirone for anxiety. Advised to continue metoprolol succinate 25 mg p.o. 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 Patient is willing to be discharged home today and his fiancee at bedside Prescription for metoprolol succinate transmitted to pharmacy Consults/Reason for consult Dr. Luciano Operations or Procedures Echocardiogram EEG Condition at Discharge: Fair Final Diagnosis/Problems List symptomatic PVC: Metoprolol succinate check urine drug screen, TSH normal cardiology consult for Dr. Luciano appreciated, echo 60 percent ejection fraction, no further cardiac workup anxiety: Continue home medication BuSpirone Hypercholesterolemia: Lipitor History of palpitations for the last four years patient has had extensive workup in the with the negative findings per patient Patient denies smoking alcohol or illicit drugs use Discharge Disposition: Home Discharge Instruct/Medications Diet: Cardiac 2g Na,low cholest Activity: No Restrictions, As Tolerated Follow Up/Referral: Follow up with your supervisor wheel shop and primary Dr after reaching [place] Medications: Metoprolol succinate 25 mg p.o. daily #45 Transmitted to [facility] [place] [facility] (Time taken for discharge summary 39 minutes) Discharge Statement: "Patient was advised to return to the ER or call 911 if any headaches, dizziness, shortness of breath, chest pain, abdominal pain, bleeding, fevers, or worsening of medical condition. Patient was counseled about treatment plan, medications, possible side effects, patientverbalized understanding. All questions were answered to the best of my ability. This discharge took greater then 30 minutes in planning, reviewing documentation, counseling the patient, and discussing with other team members." ASSESSMENT ASSESSMENT Hospital Course Uneventful Assessment symptomatic PVC: Metoprolol succinate check urine drug screen, TSH normal cardiology consult for Dr. Luciano appreciated, echo 60 percent ejection fraction, no further cardiac workup anxiety: Continue home medication BuSpirone Hypercholesterolemia: Lipitor History of palpitations for the last four years patient has had extensive workup in the with the negative findings per patient Patient denies smoking alcohol or illicit drugs use Date of Service: Nov 04, 2024 Billing Provider: ALONZO BURGESS MD Common Visit Codes: [id number]/OBS DISCH DAY >30min ALONZO BURGESS MD Nov 04, 2024 12:13
[2024-11-04 13:07] VITALS: BP 127/65; PULSE 82; RESP 16; TEMP 98; O2SAT 97
[2024-11-04 14:13] VITALS: BP 128/74; PULSE 86; RESP 16; TEMP 98.6; O2SAT 100
--- NOTE | 2024-11-05 13:03 | ECG ---
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
--- NOTE | 2024-11-05 13:03 | ECG ---
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
== END 2024-11-04 14:45 | disposition home or self-care (01) | DRG 310 ==
LOC: ER 21:01 → OVERFLOW 11-02 05:35 → ER 11-02 05:36 → OVERFLOW 11-02 05:36 → TELE-WESTW 11-02 16:36
PROVIDERS: ADMIT Student in an Organized Health Care Education/Training Program; ATTEND Student in an Organized Health Care Education/Training Program
DX: I49.3 Ventricular premature depolarization (principal); R07.9 Chest pain, unspecified; E78.00 Pure hypercholesterolemia, unspecified; F41.9 Anxiety disorder, unspecified; Z20.822 Contact with and (suspected) exposure to COVID-19
CPT/HCPCS: 36415; 71045; 80048; 80053; 80061; 83036; 83735; 84443; 84484; 85025; 93005; 93306; G0378